=== PATIENT | male | born 1965 | race Caucasian/White ===

== ENCOUNTER 2019-06-04 10:30 | Emergency (ER) | payer OTHER, SELFPAY ==
[2019-06-04 10:38] VITALS: BP 132/82; PULSE 61; RESP 18; TEMP 37; O2SAT 99; BMI 27.0
--- NOTE | 2019-06-04 10:48 | ED.ALLEREA ---
HPI - Allergic Reaction General Chief complaint: Allergic Reaction Stated complaint: Bit/Stung, swelling Time Seen by Provider: 06/04/19 10:43 Source: patient Mode of arrival: ambulatory Limitations: no limitations History of Present Illness HPI narrative: Patient is a 53-year-old male who presents with right leg insect bee sting 4 days ago. He has noted that it has continues to be pruritic and has some swelling. There is some mild erythema no streaking no fevers no chills. He has been putting ice on it but has not applied any creams. MD complaint: allergic reaction Onset (ago): day(s) (4) Related Data Previous Rx's Medication Instructions Recorded hydrocortisone 1 applictn TOP TID PRN 7 Days #20 06/04/19 gram Allergies Allergy/AdvReac Type Severity Reaction Status Date / Time No Known Drug Allergies Allergy Verified 06/04/19 10:38 Review of Systems Review of Systems GENERAL: Denies chills,fever HEENT: Denies throat pain RESPIRATORY: Denies dyspnea, cough, wheezing CARDIOVASCULAR: Denies chest pain, palpitations GASTROINTESTINAL: Denies nausea, vomiting MUSCULOSKELETAL: Denies extremity pain, injury SKIN: See HPI NEUROLOGIC: Denies weakness, dizziness, headache, numbness 8 point review of systems is negative except for those stated above and HPI PFSH Medical History Patient denies significant medical history (Acute) Social History Smoking Status: Never smoker Social History Smoking Status: Never smoker Exam Initial Vital Signs Initial Vital Signs: Vital Signs Temperature 98.6 F 06/04/19 10:38 Pulse Rate 61 06/04/19 10:38 Respiratory Rate 18 06/04/19 10:38 Blood Pressure 132/82 06/04/19 10:38 Pulse Oximetry 99 06/04/19 10:38 GENERAL: Well-appearing, well-nourished and in no acute distress. CARDIOVASCULAR: peripheral pulses in tact, cap refill <2 sec RESPIRATORY: No respiratory distress, speaks in full sentences without difficulty EXTREMITIES: Normal range of motion, no clubbing or edema. Neurovascularly intact NEUROLOGICAL: Cranial nerves II through XII grossly intact. Normal gait and speech. SKIN: Right inner leg 4 cm x 3 cm erythema no streaking some mild hardness but no real fluctuation no induration Course Vital Signs - 8 hr 06/04/19 10:38 Temperature 98.6 F Pulse Rate 61 Respiratory Rate 18 Blood Pressure 132/82 Pulse Oximetry 99 MDM - Allergic Reaction MDM Narrative Medical decision making narrative: At this time it does appear to be infected the does seem to be a localized reaction complaining of pruritus he is afebrile. At this time I think is reasonable to apply topical steroid to see if it helps. I have discussed with him warning signs of infection and when to return to the ED. Discharge Plan Departure Patient Disposition: Home Clinical Impression: Insect bite Qualifiers: Encounter type: initial encounter Site of insect bite: lower leg Laterality: right Qualified Code(s): S80.861A - Insect bite (nonvenomous), right lower leg, initial encounter Discharge Date/Time: 06/04/19 11:30 Interventions: ED Discharge Assessment Last Done: 06/04/19 11:30 Instructions: DI for Insect Bites and Stings Activity Restrictions/Additional Instructions: *You have been diagnosed with insect sting *What to do: ice 20-30 minutes *Continue to take medications as directed Hydrocortisone cream 2.5% 2 to 3 times a day for about 1 week as needed for itching *Follow up with your primary care provider in 2-3 days *Return to ER if you should have redness pus, fever, or any new, worsening or concerning symptoms Prescriptions: New hydrocortisone 2.5 % cream 1 applictn TOP TID PRN (Reason: itching) 7 Days Qty: 20 RF: 0 Referrals: Erik García MD [Non-Staff] -
== END 2019-06-04 11:30 | disposition home or self-care (01) ==
PROVIDERS: Emergency Provider Emergency Medicine
DX: T63.444A Toxic effect of venom of bees, undetermined, initial encounter (principal)
CPT/HCPCS: 99282; 99283